=== PATIENT | female | born 1955 | race Caucasian/White ===

== ENCOUNTER → 2019-04-11 | Outpatient (CLI) | payer BC ==
--- NOTE | 2019-04-11 07:55 | US ---
EXAMINATION TYPE: US abdomen complete DATE OF EXAM: 04/11/2019 COMPARISON: CT dated 02/07/2014 CLINICAL HISTORY: R10.9 ABD PAIN. Pt states post prandial pain and bloating x 5 years EXAM MEASUREMENTS: Liver Length: 12.7 cm Gallbladder Wall: 0.1 cm CBD: 0.4 cm Spleen: 9.7 cm Right Kidney: 11.0 x 3.6 x 4.1 cm Left Kidney: 10.7 x 4.7 x 4.6 cm Pancreas: wnl Liver: 2 hyperechoic lesions within liver- left lobe= 1.4 x 1.0 x 1.3 cm and right medial lobe near hepatic vein= 1.2 x 0.8 x 1.3 cm Gallbladder: wnl Evidence for sonographic Morrison's sign: No CBD: wnl Spleen: wnl Right Kidney: wnl Left Kidney: wnl Upper IVC: wnl Abd Aorta: wnl The intrahepatic portion of the IVC and proximal abdominal aorta are within normal limits. There is no evidence of cholelithiasis. Common bile duct is unremarkable. The visualized portions of the barney creas are homogenous. The spleen is unremarkable. Kidneys are symmetric and free of hydronephrosis. No renal lesions are seen. IMPRESSION: 1. There are 2 hyperechoic lesions in the liver, most commonly these represent hemangiomas in a patie nt without underlying hepatocellular disease. There is further concern three-phase CT abdomen could b e performed 2. No sonographic evidence of cholelithiasis nor acute cholecystitis.
== END | disposition home or self-care (01) ==
LOC: RADUSWWP 06:51
PROVIDERS: ATTEND Family Medicine
DX: K76.89 Other specified diseases of liver (principal); R10.9 Unspecified abdominal pain
CPT/HCPCS: 76700

== ENCOUNTER → 2019-04-30 | Outpatient (CLI) | payer BC ==
--- NOTE | 2019-04-30 09:48 | CT ---
EXAMINATION TYPE: CT abdomen w con DATE OF EXAM: 04/30/2019 HISTORY: Hemangioma of liver CT DLP: 1251mGycm Automated Exposure Control for Dose Reduction was Utilized. CONTRAST: CT scan of the abdomen is performed with IV Contrast, patient injected with 100 mL of Isovue 300. COMPARISON: Ultrasound dated 04/11/2019 FINDINGS: LUNG BASES: There is a subpleural left lower lobe 4 mm solid pulmonary nodule on series 5 image 5. Ca lcified left basilar benign granuloma is also seen that is punctate. LIVER/GB: There are 2 hypoattenuated hepatic lesions corresponding to the sonographic hyperechoic les ions in the liver. These are seen within the left hepatic lobe and medial right hepatic lobe near the hepatic vein as described on the prior ultrasound. These are best seen on portal venous phase on ser ies 5 image 20 and 21 measuring approximately 0.9 x 0.8 cm in the right hepatic lobe and 1.3 x 1.3 cm in the left hepatic lobe. There is progressive discontinuous nodular enhancement beginning in the ar terial phase and extending into the portal venous phase. On 15 minute delayed images there is complet e filling of both lesions compatible with benign hemangiomas. On the arterial phase there is a flash filling additional punctate hemangioma seen of the inferior left hepatic lobe on series 8 image 29 me asuring 0.5 x 0.6 cm. Lastly an additional 0.6 x 0.5 cm hepatic lesion in segment 8 of the liver is s een that also displays complete filling on delayed imaging without washout compatible with a fourth h emangioma. No additional suspicious hepatic lesions are seen. The liver is enlarged and elongated ext ending into the left abdomen into the right pelvis. No cholelithiasis is seen. PANCREAS: No significant abnormality is seen. SPLEEN: No significant abnormality is seen. ADRENALS: No significant abnormality is seen. KIDNEYS: Unenhanced images demonstrate no evidence of nephrolithiasis. Right lower pole 1.3 cm cyst. Too small to accurately characterize cortical left renal lesion, possible cyst on series 5 image 49 i n the midpole. BOWEL: Mild degree colonic fecal stasis. No dilated large or small bowel. LYMPH NODES: No greater than 1cm abdominal lymph nodes are appreciated. OSSEOUS STRUCTURES: Very minimal degenerative changes of the visualized spine. IMPRESSION: 1. Confirmation of benign hemangiomas. The 2 hyperechoic lesion seen on the prior ultrasound of 04/11 are compatible with benign hemangiomas. There are additionally 2 other benign hemangioma seen w ithin the liver. 2. 4 mm solid subpleural left lower lobe pulmonary nodule. Consideration could be into chest CT to fu rther evaluate the entirety of the chest or follow-up CT thorax in 12 months given the small size.
== END | disposition home or self-care (01) ==
LOC: RADCTMAIN 08:00
PROVIDERS: ATTEND Family Medicine
DX: D18.03 Hemangioma of intra-abdominal structures (principal)
CPT/HCPCS: 74160; Q9967

== ENCOUNTER → 2019-06-25 | Outpatient (CLI) | payer BC ==
--- NOTE | 2019-06-27 14:18 | MM ---
Reason for exam: screening (asymptomatic). Last mammogram was performed 3 years and 10 months ago. History: Patient is postmenopausal. Family history of breast cancer in cousin, breast cancer in sister at age 72, and breast cancer in aunt. 3 excisional biopsies of the left breast. Excisional biopsy of the right breast. Took estrogen for 13 years 2 months beginning at age 42. Took progesterone for 13 years 2 months beginning at age 42. Physical Findings: A clinical breast exam by your physician is recommended on an annual basis and results should be correlated with mammographic findings. MG 3D Screening Mammo W/Cad Bilateral CC and MLO view(s) were taken. Prior study comparison: August 28, 2015, bilateral MG screening mammo w CAD. August 19, 2014, left breast MG work up mamm w CAD LT. The breast tissue is heterogeneously dense. This may lower the sensitivity of mammography. No significant changes when compared with prior studies. ASSESSMENT: Negative, BI-RAD 1 RECOMMENDATION: Routine screening mammogram of both breasts in 1 year.
== END | disposition home or self-care (01) ==
LOC: RADMAMWWP 08:19
PROVIDERS: ATTEND Family Medicine
DX: Z12.31 Encounter for screening mammogram for malignant neoplasm of breast (principal)
CPT/HCPCS: 77063; 77067

== ENCOUNTER → 2020-07-01 | Outpatient (CLI) | payer BC ==
--- NOTE | 2020-07-03 14:14 | MM ---
Reason for exam: screening (asymptomatic). Last mammogram was performed 1 year ago. History: Patient is postmenopausal. Family history of breast cancer in cousin, breast cancer in sister at age 72, and breast cancer in aunt. 3 excisional biopsies of the left breast. Excisional biopsy of the right breast. Took estrogen for 13 years 2 months beginning at age 42. Took progesterone for 13 years 2 months beginning at age 42. Physical Findings: A clinical breast exam by your physician is recommended on an annual basis and results should be correlated with mammographic findings. MG 3D Screening Mammo W/Cad Bilateral CC and MLO view(s) were taken. Prior study comparison: June 25, 2019, bilateral MG 3d screening mammo w/cad. August 28, 2015, bilateral MG screening mammo w CAD. The breast tissue is heterogeneously dense. This may lower the sensitivity of mammography. Asymmetry medial left CC view is unchanged. Asymmetric density posterior lateral right CC view is more defined and incompletely disperses on 3D. ASSESSMENT: Incomplete: need additional imaging evaluation, BI-RAD 0 RECOMMENDATION: Special view mammogram of the right breast. (3D) If lesion persists on supplemental views, image directed ultrasound is recommended. [facility] will attempt to contact patient to return for supplemental views and ultrasound if indicated.
== END | disposition home or self-care (01) ==
LOC: RADMAMWWP 08:15
PROVIDERS: ATTEND Family Medicine
DX: Z12.31 Encounter for screening mammogram for malignant neoplasm of breast (principal)
CPT/HCPCS: 77063; 77067

== ENCOUNTER → 2020-07-08 | Outpatient (CLI) | payer BC ==
--- NOTE | 2020-07-08 10:13 | MM ---
Reason for exam: additional evaluation requested from abnormal screening. Last mammogram was performed less than 1 month ago. History: Patient is postmenopausal. Family history of breast cancer in cousin, breast cancer in sister at age 72, and breast cancer in aunt. 3 excisional biopsies of the left breast. Excisional biopsy of the right breast. Took estrogen for 13 years 2 months beginning at age 42. Took progesterone for 13 years 2 months beginning at age 42. Physical Findings: Nurse did not find any significant physical abnormalities on exam. MG 3D Work Up W/Cad RT Spot compression CC, LM, and CCRM view(s) were taken of the right breast. Prior study comparison: July 01, 2020, bilateral MG 3d screening mammo w/cad. June 25, 2019, bilateral MG 3d screening mammo w/cad. The breast tissue is heterogeneously dense. This may lower the sensitivity of mammography. 6mm lateral nodularity persists on spot 3D CC. Appears circumscribed. Not well localized on lateral view. These results were verbally communicated with the patient and result sheet given to the patient on 07/08/20. ASSESSMENT: Incomplete: need additional imaging evaluation, BI-RAD 0 RECOMMENDATION: Ultrasound of the right breast. (7-11 o'clock)
--- NOTE | 2020-07-08 10:14 | USB ---
Reason for exam: additional evaluation requested from abnormal screening. History: Patient is postmenopausal. Family history of breast cancer in cousin, breast cancer in sister at age 72, and breast cancer in aunt. 3 excisional biopsies of the left breast. Excisional biopsy of the right breast. Took estrogen for 13 years 2 months beginning at age 42. Took progesterone for 13 years 2 months beginning at age 42. US Breast Workup Limited RT Technologist: Meenakshi Gamez Right limited breast ultrasound including focal area of concern, retroareolar and axilla demonstrates no cystic or solid lesion seen. Scanned 7-12 o'clock. These results were verbally communicated with the patient and result sheet given to the patient on 07/08/20. ASSESSMENT: Probably benign, BI-RAD 3 RECOMMENDATION: Follow-up diagnostic mammogram of the right breast in 6 months.
== END | disposition home or self-care (01) ==
LOC: RADMAMWWP 08:16
PROVIDERS: ATTEND Family Medicine
DX: R92.8 Other abnormal and inconclusive findings on diagnostic imaging of breast (principal)
CPT/HCPCS: 77061; 77065

== ENCOUNTER → 2020-11-09 | Outpatient (CLI) | payer MEDICARE, OTHER ==
--- NOTE | 2020-11-09 13:10 | NM ---
EXAMINATION TYPE: NM gastric emptying static DATE OF EXAM: 11/09/2020 COMPARISON: CT abdomen April 30, 2019 HISTORY: Bloating and epigastric pain Following administration of 2.1 mCi Tc 99m Sulfur Colloid with 8oz Ensure Plus, projection images of the abdomen were obtained 3 minutes post ingestion. Patient Emptying Values 1 Hour 42 % 2 Hours 80 % 3 Hours 98 % 4 Hours 96 % IMPRESSION: No scintigraphic evidence for underlying gastroparesis. Gastric emptying normal percentage values: 30 minutes: <70% of retention (> 30% emptying) suggests abnormally fast emptying. 60 minutes: <90% retention (>10% emptying) is normal; less than 30% retention (>70% emptying) suggest s abnormally rapid emptying. 90 minutes: <65% retention (> 35% emptying) is normal. 120 minutes: <60% retention (> 40% emptying) is normal. 180 minutes: <30% retention (> 70% emptying) is normal. Gastric emptying T-1/2: Solid: The normal range is 60-105 minutes Liquid only: Normal range is 10-45 minutes. Liquid only-children: At 60 minutes, normal range is 44-58 % . Liquid only-infants: At 60 minutes, normal range is 32-64 %. Additional references: Gastric Emptying Scintigraphy [email or web address]://[email or web address]
== END | disposition home or self-care (01) ==
LOC: RADNMMAIN 06:50
PROVIDERS: ATTEND Family Medicine
DX: R14.0 Abdominal distension (gaseous) (principal); R10.13 Epigastric pain
CPT/HCPCS: 78264; A9541

== ENCOUNTER → 2020-12-01 | Outpatient (CLI) | payer MEDICARE, OTHER ==
--- NOTE | 2020-12-01 16:56 | NM ---
EXAMINATION TYPE: NM hepatobiliary w EF DATE OF EXAM: 12/01/2020 COMPARISON: NONE HISTORY: 65-year-old female R10.9, unspecified abdominal pain TECHNIQUE: After the intravenous administration of 4.3 mCi Tc 99m Mebrofenin hepatobiliary scintigrap hy is performed. Immediate images post injection. FINDINGS: There is satisfactory initial accumulation of tracer by the liver. The gallbladder is visualized wit hin 2 minutes. The small bowel activity is noted within the minutes. At one hour, 8 ounces of oral ensure plus is given to mimic CCK and gallbladder ejection fraction is calculated at 83 %, mildly ernestina vated. IMPRESSION: 1. No scintigraphic evidence for acute/chronic cholecystitis or biliary dyskinesia. 2. Mildly increased gallbladder ejection fraction of 83% may be seen in the setting of gallbladder hy perkinesis.
== END | disposition home or self-care (01) ==
LOC: RADNMMAIN 12:39
PROVIDERS: ATTEND Nurse Practitioner Adult Health
DX: R10.9 Unspecified abdominal pain (principal)
CPT/HCPCS: 78226; A9537

== ENCOUNTER → 2020-12-08 | Outpatient (CLI) | payer MEDICARE, OTHER ==
--- NOTE | 2020-12-08 21:02 | CT ---
EXAMINATION TYPE: CT abdomen w con DATE OF EXAM: 12/08/2020 HISTORY: f/u liver lesions CT DLP: 711.1mGycm Automated Exposure Control for Dose Reduction was Utilized. CONTRAST: CT scan of the abdomen is performed with oral and without and with IV Contrast, patient injected with 100 mL of Isovue 300. COMPARISON: CT abdomen April 30, 2019 and older study 2013 FINDINGS: LUNG BASES: Stable 2-3 mm calcified posterior left lower lobe nodule or benign granuloma axial image 14. Stable 4 mm subpleural nodule superior lateral to this axial image 2. LIVER/GB: There is stable vague 1.3 cm heterogeneous hypodense lesion left hepatic lobe anteriorly se olinda 6 image 28 and a 1.1 cm hypodense lesion series 9 image 25 near draining right hepatic vein jerrica g with tiny subcentimeter hypodense focus inferior right hepatic lobe series 9 image 23 all redemonst rated. No new or enlarging lesions. Hyperechoic lesions noted on prior ultrasound report. Findings li ngozi reflect benign hemangiomas, they are too small to definitively characterize. No new or enlarging lesions is consistent with benign etiology. No surrounding ascites. No biliary dilatation. Patent no ndilated main portal vein. Patent hepatic veins draining into IVC. Stable prominent left hepatic lobe . PANCREAS: No significant abnormality is seen. SPLEEN: No significant abnormality is seen. ADRENALS: No significant abnormality is seen. KIDNEYS: No renal calculi on noncontrast images symmetric cortical medullary uptake and excretion wit hout hydronephrosis seen bilaterally. Benign thin-walled 1.1 cm cyst posteriorly right kidney lower p ole level coronal image 51 series 16. BOWEL: Oral contrast does not reach colonic level. No suspicious small or large bowel dilatation. LYMPH NODES: No new Greater than 1 cm abdominal lymph nodes are appreciated. OSSEOUS STRUCTURES: Slight grade 1 retrolisthesis L2 on L3 with mild to moderate disc space narrowing . OTHER: No significant additional abnormality is seen. IMPRESSION: Liver findings stable presumed benign. No new or enlarging lesions evident.
== END | disposition home or self-care (01) ==
LOC: RADCTMAIN 16:47
PROVIDERS: ATTEND Family Medicine
DX: K76.9 Liver disease, unspecified (principal)
CPT/HCPCS: 82565; 84520; 74160; 36415; Q9967

== ENCOUNTER 2022-04-09 15:34 | Emergency (ER) | payer MEDICARE, OTHER ==
[2022-04-09 16:07] VITALS: BP 135/67; PULSE 78; RESP 18; TEMP 97.9
--- NOTE | 2022-04-09 16:09 | ED ---
Lower Extremity Injury HPI - General Stated Complaint: broken rt foot Time Seen by Provider: 04/09/22 16:05 Source: patient, RN notes reviewed Mode of arrival: ambulatory Limitations: no limitations - History of Present Illness Initial Comments: This is a pleasant 66-year-old female who was up on top of her washing machine going into HER. When she came down she fell off onto her right foot. Patient complaining of sharp pain to the area of the calcaneus and insertion of the Achilles tendon. The other injuries. There is no head or neck injury. Denies any distal paresthesias. She states movement exacerbates the pain. Rest alleviates the pain. Patient had a hard time putting any weight on the injury. Denies any injury proximally. MD Complaint: ankle injury, foot injury - Related Data Allergies Allergy/AdvReac Type Severity Reaction Status Date / Time Penicillins Allergy Rash/Hives Verified 04/09/22 16:07 Review of Systems ROS Statement: Those systems with pertinent positive or pertinent negative responses have been documented in the HPI. ROS Other: All systems not noted in ROS Statement are negative. General Exam - General Exam Comments Initial Comments: Does not appear to be ill or toxic. General appearance: alert, in no apparent distress Head exam: Present: atraumatic, normocephalic, normal inspection Eye exam: Present: normal appearance, EOMI. Absent: scleral icterus, conjunctival injection, periorbital swelling ENT exam: Present: normal exam Neck exam: Present: normal inspection, full ROM Respiratory exam: Present: normal lung sounds bilaterally. Absent: respiratory distress Cardiovascular Exam: Present: regular rate, normal rhythm, normal heart sounds. Absent: clicks GI/Abdominal exam: Present: soft. Absent: distended, tenderness, guarding, rebound, rigid Extremities exam: Present: normal inspection, full ROM, tenderness (Patient has tenderness to the area of the Achilles tendon insertion on the right. Mild tenderness about the calcaneus area. No proximal fifth metatarsal tenderness.), normal capillary refill, other (Negative Homans sign, Barakat's test reveals intact Achilles tendon. Remainder of the musculoskeletal examination is atraumatic and normal). Absent: pedal edema, joint swelling, calf tenderness Back exam: Present: normal inspection Neurological exam: Present: alert, oriented X3, CN II-XII intact Psychiatric exam: Present: normal affect, normal mood Skin exam: Present: warm, dry, intact, normal color. Absent: rash Course Vital Signs 04/09/22 16:00 Temperature 97.9 F Pulse Rate 78 Respiratory 18 Rate Blood Pressure 135/67 O2 Sat by Pulse 99 Oximetry Procedures - Orthopedic Splinting/Casting Injury #1 Side: right Lower Extremity Injury Location: short leg (Posterior mold) Lower Extremity Immobilizer: posterior splint (OCL) Other Orthopedic Equipment: crutches Additional Comments: Distal neurovascular status intact both pre-and post-application Medical Decision Making - Medical Decision Making Patient was told to return to the ER for any signs or symptoms worsen. Told to return immediately if any other problems arise. All questions answered. Treatment plan discussed. Patient in agreement Every effort has been made to ensure accuracy of this dictation. However, due to the limitations of electronic medical records and dictation devices, errors in charting still occur. Patient has a displaced calcaneus fracture on the right. His neurovascular status intact. He should placed in a short leg posterior mold splint, crutches provided. Crutch training, splint education provided. Patient notes no weight bearing until orthopedic follow-up. Counseled on signs and symptoms of compartment syndrome. Patient was told to return to the ER for any signs or symptoms worsen. Told to return immediately if any other problems arise. All questions answered. Treatment plan discussed. Patient in agreement Every effort has been made to ensure accuracy of this dictation. However, due to the limitations of electronic medical records and dictation devices, errors in charting still occur. [employer] Dr. Castro Disposition Clinical Impression: Closed fracture of right calcaneus Disposition: HOME SELF-CARE Condition: Good Instructions (If sedation given, give patient instructions): Crutch Instructions (ED), Foot Fracture in Adults (ED), Splint Care (ED) Additional Instructions: Make an appointment with the orthopedic physician as discussed. Elevate when possible. Apply ice 20 minutes on and off to the affected area. Neck at the splinting material wet. Weightbearing. Return to the ER immediately if any symptoms worsen, new symptoms arise, or any other problems develop. Is patient prescribed a controlled substance at d/c from ED?: No Referrals: Polly Henry DO [Doctor of Osteopathic Medicine] - 04/11/22 8:00 am Time of Disposition: 17:12
--- NOTE | 2022-04-09 17:29 | XR ---
EXAMINATION TYPE: XR ankle complete RT DATE OF EXAM: 04/09/2022 4:33 PM INDICATION: Patient age:Female; 66 years old; Reason for study: pain/trauma; [facility]. COMPARISON: Calcaneal radiograph 04/09/2022, right foot radiograph 04/09/2022 TECHNIQUE: The right ankle was examined in the AP, oblique, and lateral projections. FINDINGS: Ankle mortise is normal in appearance. The distal tibia and fibula are normal in appearance without e vidence for fracture. Diastased x-ray the posterior calcaneus without evidence for intra-articular ex tension. Moderate soft tissue swelling. IMPRESSION: 1. Ankle joint and mortise are normal in appearance. 2. Calcaneal fracture without evidence for intra-articular extension.
--- NOTE | 2022-04-09 17:33 | XR ---
EXAMINATION TYPE: XR foot complete RT DATE OF EXAM: 04/09/2022 4:33 PM INDICATION: Patient age:Female; 66 years old; Reason for study: pain/trauma; [facility]. COMPARISON: Right ankle radiographs 04/09/2022, right calcaneal radiograph 04/09/2022 TECHNIQUE: The right foot was examined in the AP, oblique, and lateral projections. FINDINGS: Posterior calcaneal fracture. No additional fractures are appreciated. Moderate soft tissue swelling No evidence of soft tissue swelling. Mild asymmetric joint space narrowing of the distal interphalang eal joint. IMPRESSION: 1. Posterior calcaneal fracture with associated soft tissue swelling. 2. Mild osteoarthritis.
--- NOTE | 2022-04-09 17:51 | XR ---
EXAMINATION TYPE: XR calcaneus 2V RT DATE OF EXAM: 04/09/2022 4:33 PM INDICATION: Patient age:Female; 66 years old; Reason for study: pain/trauma; [facility]. COMPARISON: Right foot radiograph 04/09/2022, right ankle radiographs 04/09/2022 TECHNIQUE: The right calcaneus was examined in the lateral and axial projections. FINDINGS: Fracture involving the posterior calcaneus without definitive evidence for intra-articular extension. Subtle buckling and lucency along the lateral aspect the calcaneus on axial views. The articular rosalia faces appear normally aligned. Moderate soft tissue swelling of the posterior foot and ankle joint. N o additional fractures are appreciated. IMPRESSION: Posterior calcaneal fracture with localized soft tissue swelling. Secondary fracture involving the la teral body is better characterized on foot radiographs from same day. No definitive evidence for intr a-articular extension.
--- NOTE | 2022-04-11 11:36 | CT ---
EXAMINATION TYPE: CT brain wo con DATE OF EXAM: 04/11/2022 HISTORY: Headache. CT DLP: 1088 mGycm. Automated Exposure Control for Dose Reduction was Utilized. TECHNIQUE: CT scan of the head is performed without contrast. COMPARISON: None. FINDINGS: There is no acute intracranial hemorrhage or midline shift identified. Ventricles and sul ci are within normal limits in size for patient's age. Jimenes-white matter differentiation is maintaine d. The globes are intact and the visualized sinuses are clear. IMPRESSION: No acute intracranial hemorrhage or midline shift.
== END 2022-04-09 17:45 | disposition home or self-care (01) ==
LOC: EC 15:34
DX: S92.001A Unspecified fracture of right calcaneus, initial encounter for closed fracture (principal); Z88.0 Allergy status to penicillin; W20.8XXA Other cause of strike by thrown, projected or falling object, initial encounter
CPT/HCPCS: 29515; 70450; 99284

== ENCOUNTER → 2022-04-11 | Outpatient (CLI) | payer MEDICARE, OTHER ==
--- NOTE | 2022-04-11 15:02 | CT ---
EXAMINATION TYPE: CT ankle RT wo con DATE OF EXAM: 04/11/2022 COMPARISON: Right foot ankle and calcaneal x-rays 2 days ago. HISTORY: displaced fx rt calcaneus CT DLP: 300.50 mGycm Automated exposure control for dose reduction was used. Technique: CT right ankle without contrast FINDINGS: Acute comminuted slightly displaced fracture through the calcaneus involving the posterior portion is redemonstrated. There is linear extension to the superior calcaneus at the level of the sinus tarsi confirmed. No subtalar joint separation or displacement is seen. Some narrowing posteriorly is noted on sagittal images. Anterior calcaneal articulation with the anterior inferior talus is maintained. T he degree of displacement is up to 8 to 9 mm posteriorly on sagittal image 23 for reference. Fracture extends to the posterior inferior calcaneus. This correlates with plain films. [id number] subc utaneous edema and soft tissue swelling is noted. Extension to the medial and lateral surfaces are id entified mid and posterior portion of the calcaneus Distal tibia and fibula are intact. Sinus tarsi fat is seen. Visualized hindfoot and midfoot structur es otherwise are maintained. IMPRESSION: Acute comminuted slightly displaced fracture involving posterior three fourths of the alexander caneus with intra-articular extension to level of the sinus tarsi confirmed. No significant height lo ss is identified. No tiny ossific intra-articular fragments seen.
== END | disposition home or self-care (01) ==
LOC: RADCTMAIN 14:12
PROVIDERS: ATTEND Orthopaedic Surgery
DX: S82.891A Other fracture of right lower leg, initial encounter for closed fracture (principal)

== ENCOUNTER 2022-04-22 08:15 | Day surgery (SDC) | payer MEDICARE, OTHER ==
[2022-04-20 12:42] VITALS: BMI 21.4
[~2022-04-22 08:15] MED LIST: DEXAMETHASONE SOD PHOSPHATE 4 MG/ML 1 ML VIAL IV ONE; HYDROmorphone 0.5 MG/0.5 ML SYRINGE IVP PRN; LACTATED RINGERS 1,000 ML IV SCH; LIDOCAINE 1% (10MG/ML) FOR IV START INTRADERMA PRN; MIDAZOLAM 2 MG/2 ML VIAL IV PRN; ONDANSETRON 4 MG/2 ML VIAL IVP ONE
[2022-04-22] MEDS ORDERED: PROPOFOL 10 MG/ML 20 ML VIAL IV ONE (10:06)
[2022-04-22] MEDS ORDERED: PHENYLEPHRINE-0.9% NACL SYG 1,000 MCG/10 ML SYRINGE ONE (10:06)
[2022-04-22] MEDS ORDERED: MIDAZOLAM 2 MG/2 ML VIAL ONE (10:06)
[2022-04-22] MEDS ORDERED: NEOSTIGMINE 1 MG/ML 10 ML VIAL ONE (10:06)
[2022-04-22] MEDS ORDERED: LIDOCAINE 2% INJ 20 MG/ML (2 ML VIAL) ONE (10:06)
[2022-04-22] MEDS ORDERED: ROPIVACAINE 5 MG/ML 30 ML VIAL ONE (10:06)
[2022-04-22] MEDS ORDERED: SUCCINYLCHOLINE CHLORIDE 200 MG/10 ML VIAL IV ONE (10:06)
[2022-04-22] MEDS ORDERED: fentaNYL (PF) 50 MCG/ML 2 ML AMP ONE (10:06)
[2022-04-22] MEDS ORDERED: ROCURONIUM 10 MG/ML (5 ML VIAL) IV ONE (10:06)
[2022-04-22] MEDS ORDERED: ePHEDrine 50 MG/ML 1 ML VIAL ONE (10:06)
[2022-04-22] MEDS ORDERED: DEXAMETHASONE SOD PHOSPHATE 4 MG/ML 1 ML VIAL ONE (10:06)
[2022-04-22] MEDS ORDERED: GLYCOPYRROLATE 0.2 MG/ML 2 ML VIAL ONE (10:06)
[2022-04-22] MEDS ORDERED: LACTATED RINGERS 1,000 ML IV ONE (11:20)
[2022-04-22 11:55] VITALS: TEMP 96.9
--- NOTE | 2022-04-22 12:01 | P.OP ---
Date of Procedure: 04/22/22 Preoperative Diagnosis: Displaced right tongue-type calcaneus fracture Postoperative Diagnosis: Same Procedure(s) Performed: Open reduction internal fixation right calcaneus fracture Anesthesia: RAMONA, regional Surgeon: Mynor Mayo Fast [employer] Assistant Restaurant Manager #1: Arthur Small Estimated Blood Loss (ml): 10 IV fluids (ml): 1,000 Pathology: none sent Condition: stable Disposition: PACU Indications for Procedure: The patient is a very pleasant previously healthy 66 rolled female who sustained a right calcaneus fracture. She presented to my office where x-rays and a computed tomography scan showed a displaced tongue-type calcaneus fracture. Due to the patient's young age and the displacement of the fracture I recommended open reduction and internal fixation. We discussed the potential risks and competitions of surgery including but certainly not limited to risks from anesthesia, superficial infection, deep infection, nonunion, malunion, sent to medical hardware, posttraumatic arthritis, damage to local blood vessels or nerves, damage to the Achilles tendon, DVT, PE, other medical complications, need for further surgery, and inability to regain preinjury level of function, and relies dissatisfaction with her surgical outcome, and possibly loss of life or limb. The patient and her voiced understanding these potential complications and also gallops that other less common complications are possible. They provided both her verbal and written consent to go forward with surgery. Description of Procedure: The patient was identified in preoperative holding and the correct right leg was marked with my initials. She received a block by anesthesia. I reviewed the consent form with the patient and all of her questions were answered. The patient was then brought back to the operating room. She was positioned on the OR table where a general anesthetic and preoperative antibiotics were given. A tourniquet was applied the proximal aspect of the right leg but was not used during the surgery. The patient was then positioned in the lateral decubitus position with the affected right side up. An axillary roll was placed. The down leg was well-padded. A ramp was placed under the operative leg and the legs were scissored to facilitate imaging. Prior to draping I verified that an axial and lateral view of the calcaneus could be obtained. Nondrapes were applied. The leg was then prepped and draped in the sterile fashion. Before surgery started a timeout was performed identifying the correct patient, operative extremity and procedure. I began by making a stab incision over the posterior tuberosity of the calcaneus. A 2.6 mm drill bit was used to create a fire pilot hole and then a 5 mm Schanz pin was placed uses a joystick. I provisionally reduced the tongue-type fragment using x-ray to verify that the fracture was reduced both at the tongue- type fracture site and at the critical angle. Once I was happy with the reduction guide pins were placed through stab incisions for cannulated screws across the fracture. All screws were placed using x-ray guidance. Once all screws were placed the Schanz pin was removed and the fracture was found to be anatomically reduced and the hardware and except we'll position on an axial and lateral view. The stab incisions from the screws and Schanz pin were irrigated and closed with 3-0 nylon. A well-padded bulky Badillo splint was placed with the ankle at neutral. The patient was then carefully transferred off the operating room table onto a gurney, extubated, and brought to recovery having tolerated the procedure well. Arthur Small PA-C was required as a skilled data analysis assistant due to the complex of the surgical procedure. Plan: The patient is going to be strictly nonweightbearing on her right leg. She is noted discharge home today. She'll be treated with aspirin for DVT prophylaxis based on preoperative risk stratification. She'll be follow-up in the office in 2 weeks at which point her splint should be removed and she should have nonweightbearing x-rays of the calcaneus including a lateral and axial view.
--- NOTE | 2022-04-22 12:21 | FL ---
Intraoperative/procedural fluoroscopic services were provided. Total fluoroscopy time is 2 minutes 33 seconds with a total of 8 submitted images to PACS. Please see the operative/procedural note for fur ther details.
[2022-04-22 12:43] VITALS: RESP 16
[2022-04-22 13:04] VITALS: BP 102/61; PULSE 60
--- NOTE | 2022-04-23 11:15 | P.ANPRN ---
Procedure Note - Anesthesia - Nerve Block Performed Right Popliteal Single Time Out Performed: Yes Date of Procedure: 04/22/22 Procedure Start Time: :36 Procedure Stop Time: :41 Location of Patient: PreOp Indication: Acute Post-Operative Pain, Requested by Surgeon Sedation Type: Sedate with meaningful contact maintained Preparation: Sterile Prep Position: Left Lateral Needle Types: Pajunk Needle Gauge: 21 Ultrasound used to visualize needle placement: Yes Ultrasound used to observe medication spread: Yes Blood Aspirated: No Pain Paresthesia on Injection Noted: No Resistance on Injection: Normal Image Stored and Saved: Yes Events: Uneventful and Well Tolerated (Ropivacaine 0.5% 20 mL plus dexamethasone 4 mg)
== END 2022-04-22 13:19 | disposition home or self-care (01) ==
LOC: OR 08:15
PROVIDERS: ATTEND Orthopaedic Surgery
DX: S92.001A Unspecified fracture of right calcaneus, initial encounter for closed fracture (principal); G89.18 Other acute postprocedural pain; Z97.3 Presence of spectacles and contact lenses; Z88.0 Allergy status to penicillin; Z82.49 Family history of ischemic heart disease and other diseases of the circulatory system; X58.XXXA Exposure to other specified factors, initial encounter
CPT/HCPCS: 64445; 76942; 73650; 28415; C1713; J2250; J0330; J1100; J2710; J0690; J2405; J3010; J2795; J2370; J2704; J2001